=== PATIENT | female | born 1965 | race Caucasian/White ===

== ENCOUNTER → 2016-12-20 | Outpatient (CLI) | payer BC ==
[~2016-12-20] MED LIST: ESCI1TAB10 PO; FERR1TAB13 PO; INSDGI SC; LOSA1TAB PO; METF-384 PO; NAPR1TAB9 PO; NOVOLOG SC; OXYC-57 PO; PREG100C PO; VNTHFA/IN INH
== END | disposition home or self-care (01) ==
LOC: C.PATH 14:42
PROVIDERS: ATTEND Obstetrics & Gynecology
DX: N92.0 Excessive and frequent menstruation with regular cycle (principal)

== ENCOUNTER → 2016-12-20 | Outpatient (CLI) | payer BC ==
[2016-12-20 12:19] LABS: MEAN CELL VOLUME 90.6 fL (80-100); MEAN CORPUSCULAR HEMOGLOBIN 29.9 pg (25-34); MEAN PLATELET VOLUME 9.5 fL (7.4-10.4); PLATELET COUNT 310 K/uL (130-400); RED BLOOD COUNT 3.31 M/uL (4.2-5.4); WHITE BLOOD COUNT 8.04 K/uL (4.8-10.8)
== END | disposition home or self-care (01) ==
LOC: C.LAB1850 09:48
PROVIDERS: ATTEND Physician Assistant
DX: N92.0 Excessive and frequent menstruation with regular cycle (principal)

== ENCOUNTER → 2017-01-15 | Outpatient (CLI) | payer BC | END | disposition home or self-care (01) | LOC: C.PATHSPEC 13:54 | PROVIDERS: ATTEND Obstetrics & Gynecology | DX: N93.9 Abnormal uterine and vaginal bleeding, unspecified (principal) ==

== ENCOUNTER → 2017-01-31 | Outpatient (CLI) | payer BC | END | disposition home or self-care (01) | LOC: C.PAPS 16:22 | PROVIDERS: ATTEND Obstetrics & Gynecology | DX: Z01.419 Encounter for gynecological examination (general) (routine) without abnormal findings (principal) ==

== ENCOUNTER 2017-02-26 07:41 | Observation (INO) | payer BC ==
[2017-01-31 10:58] VITALS: BMI 38.0
--- NOTE | 2017-01-31 11:33 | PAT Medication Instructions ---
Service Date January 31, 2017. Current Home Medication List Albuterol Hfa (Ventolin Hfa), 2-4 PUFFS INH Q6H PRN for PRN Escitalopram Oxalate (Lexapro), 20 MG PO HS Ferrous Sulfate (Kp Ferrous Sulfate), 1 TAB PO QAM Insulin Glargine (Lantus), 23 SC HS Losartan Potassium (Cozaar), 25 MG PO QAM Metformin Hcl (Glucophage), 1,000 MG PO QAM Naproxen (Aleve), 220 MG PO QAM Pregabalin (Lyrica), 100 MG PO BID [Novolog], 14 UNITS SC QAM [Novolog], 8 UNITS SC NOON [Novolog], 28 UNITS SC QPM Medication Instructions For Your Scheduled Surgery - Check with surgeon for instructions: Naproxen (Aleve), 220 MG PO QAM - Hold the following medications 48 hours prior to surgery: Metformin Hcl (Glucophage), 1,000 MG PO QAM - Hold the following medications the morning of surgery: Losartan Potassium (Cozaar), 25 MG PO QAM Ferrous Sulfate (Kp Ferrous Sulfate), 1 TAB PO QAM [Novolog], 14 UNITS SC QAM - Take the following medications the morning of surgery with a sip of water: Pregabalin (Lyrica), 100 MG PO BID Albuterol Hfa (Ventolin Hfa), 2-4 PUFFS INH Q6H PRN for PRN (use if needed; bring to hospital) - Take the following medications as scheduled the night before surgery: Pregabalin (Lyrica), 100 MG PO BID Insulin Glargine (Lantus), 23 SC HS Escitalopram Oxalate (Lexapro), 20 MG PO HS Albuterol Hfa (Ventolin Hfa), 2-4 PUFFS INH Q6H PRN for PRN [Novolog], 28 UNITS SC QPM [Novolog], 8 UNITS SC NOON If you have any questions please call us at [phone] or [phone] or [phone]
[2017-01-31 11:48] LABS: BASO % 0.4 %; BASO ABS # 0.03 K/uL (0-0.2); COMPLETE YES; EOS % 1.9 %; HEMATOCRIT 39.2 % (37-47); IG% 0.3 %; LYMPH % 28.7 %; LYMPH ABS # 2.24 K/uL (1.2-3.4); MEAN CELL VOLUME 90.5 fL (80-100); MEAN CORPUSCULAR HEMOGLOBIN 28.2 pg (25-34); MEAN CORPUSCULAR HGB CONC 31.1 g/dl (32-36); MEAN PLATELET VOLUME 9.5 fL (7.4-10.4); MONO % 6.3 %; NEUT % 62.4 %; PLATELET COUNT 289 K/uL (130-400); RED BLOOD COUNT 4.33 M/uL (4.2-5.4)
[2017-01-31 12:55] LABS: BUN/CREATININE RATIO 22.1 (10-20); CALCIUM 8.8 mg/dl (8.5-10.1); CREATININE 0.74 mg/dl (0.60-1.20); POTASSIUM 4.1 mmol/L (3.5-5.1)
[~2017-02-26] VITALS: Ht 162.6 cm; Wt 99.8 kg
[2017-02-26] VITALS (8 sets, daily range): BP systolic 124–159; BP diastolic 72–93; PULSE 57–76; TEMP 36.4–36.9; O2SAT 94–100; BMI 38.0
[~2017-02-26 07:41] MED LIST changes: +CEFAZOLIN 3000 MG/65 ML D5W IV SCH; +LACTATED RINGER'S 1000ML 1,000 ML IV SCH; -OXYC-57 PO
[2017-02-26] MEDS ORDERED: DEXAMETHASONE SOD INJ 4 MG/ML VIAL ONE (08:34)
[2017-02-26] MEDS ORDERED: ROCURONIUM BROMIDE 10 MG/ML 5 ML VIAL ONE (08:34)
[2017-02-26] MEDS ORDERED: NEOSTIGMINE METHYLSULFATE 5 MG/5 ML SYR ONE (08:34)
[2017-02-26] MEDS ORDERED: FENTANYL CITRATE INJ 50 MCG/1 ML 2 ML VIAL ONE (08:34)
[2017-02-26] MEDS ORDERED: GLYCOPYRROLATE INJ 0.2 MG/ML VIAL ONE (08:34)
[2017-02-26] MEDS ORDERED: PROPOFOL IV EMULSION 10 MG/ML 20 ML VIAL IV ONE (08:34)
[2017-02-26] MEDS ORDERED: ONDANSETRON INJ 2 MG/ML 2 ML VIAL ONE ×2 (08:34→11:48)
[2017-02-26] MEDS ORDERED: MIDAZOLAM HCL 1 MG/ML 2ML VIAL ONE (08:34)
[2017-02-26] MEDS ORDERED: LIDOCAINE HCL 2% 2 ML VIAL (20MG/ML) ONE (08:34)
--- NOTE | 2017-02-26 09:03 | History & Physical Bridge Note ---
H&P Re-Evaluation Bridge Note: I have examined the patient, reviewed the History & Physical and in the interval since the performance of the History & Physical I have noted the following changes of clinical significance: Patient underwent cardiology clearance. Had ekg, echo and stress echo. Was cleared by cards for this surgery. No other changes. No bleeding since seen.
[2017-02-26] MEDS ORDERED: LACTATED RINGER'S 1000ML 1,000 ML IV PRN (09:18)
[2017-02-26] MEDS ORDERED: HYDROmorphone INJ 1 MG/ML SYR IV PRN (09:30)
[2017-02-26] MEDS ORDERED: FENTANYL CITRATE INJ 50 MCG/1 ML 2 ML VIAL IV PRN (09:30)
[2017-02-26] MEDS ORDERED: ONDANSETRON INJ 2 MG/ML 2 ML VIAL IV PRN ×2 (09:30→18:30)
[2017-02-26] MEDS ORDERED: BUPIVACAINE 0.5 % 5 MG/1 ML MPF 30ML VIAL ONE (09:38)
[2017-02-26] MEDS ORDERED: METHYLENE BLUE 0.5% 10 ML VIAL ONE (09:38)
[2017-02-26] MEDS ORDERED: HYDROmorphone INJ 2 MG/ML SYR/VIAL ONE (10:26)
[2017-02-26] MEDS ORDERED: TISSEEL FIBRIN SEALANT 4ML TOP ONE ×2 (11:21→11:58)
[2017-02-26] MEDS ORDERED: OXYC-57 PO (12:08)
--- NOTE | 2017-02-26 12:09 | Discharge Instructions ---
Discharge Instructions Date of Service Feb 26, 2017. Admission Reason for Admission: Menorrhagia Discharge Discharge Diagnosis / Problem: s/p laproscopic hyster and removal of both tubes Discharge Goals Goal(s): Routine recovery after surgery Activity Recommendations Activity Limitations: per Instructions/Follow-up section . Instructions / Follow-Up Instructions / Follow-Up POST OPERATIVE: BOWEL FUNCTION/MEDICATIONS: 1. Constipation pain and discomfort are the most common complaints 5-7 days after surgery. Points 2-6 address the things that can help. 2. Chewing gum can help stimulate the gut and help improve digestion and motility. 3. Milk of Magnesia 1-2 times per day until return of bowel function. 4. Colace is a stool softener that helps. Taking this 2-3 times per day until bowel function returns to normal is highly recommended. 5. Dulcolax is a laxative that may be used if several days have passed without a bowel movement. Alternatively Miralax may be used daily instead. 6. Drink plenty of fluids as this will also reduce constipation. 7. Narcotic pain medications will be prescribed by your physician. They are safe to use and we encourage you to use them. If you are not allergic, ibuprofen will also be prescribed. Many patients will be able to transition off of the narcotic medications to ibuprofen by postoperative day 3. ACTIVITY RECOMMENDATIONS: 1. Get plenty of rest and listen to your body. If you are tired, take a nap. 2. You may shower, but do not take a tub bath until you see your doctor at the 2 week post operative visit. 3. Absolutely NO intercourse and nothing in the vagina until you are examined by your doctor at the 6 week visit. At that visit it will be determined when such activities can be resumed. This can range from 6-12 weeks after your surgery depending on healing time. 4. The main physical activity in the first week should be walking. By the second week you can slowly increase activity. There are no limits on walking up and down stairs. 5. Do not lift more than 5-10 lbs for 4 weeks. Remember the "one-handed rule", i.e. if you can lift something with only one hand it's likely okay. 6. Minimize pin chaser like vacuuming and exercising for 4 weeks. "Overdoing it" can lead to incisions not healing, pain and vaginal bleeding , so again, listen to your body. 7. Driving can be resumed when you feel able. Do not drive within 24 hours of taking a narcotic medication. EXPECTATIONS: 1. Vaginal spotting, bleeding and discharge are common after surgery. There may even be an odor to the discharge which is often related to sutures used in the vagina. If you experience heavy vaginal bleeding, call the office number day or night [phone]. 2. Bladder discomfort is common after surgery from the catheter. This usually resolves in 1-2 weeks. 3. By the end of the 3rd or 4th week you should be feeling much better. It may take up to 6 weeks for your energy levels to return to normal. 4. Narcotic medications have side effects such as: dizziness, headache, nausea and/or vomiting. If you suspect your pain medication is causing problems, call our office and we may be able to prescribe an alternate medication. 5. The skin incisions are often covered with a liquid bandage. This will gradually peel off over time. CALL THE OFFICE IF YOU HAVE ANY OF THE FOLLOWIN. Temperature of 101 degrees or higher. 2. Severe abdominal or pelvic pain not relieved by pain medication. 3. Persistent nausea or vomiting. 4. Increased pain with urination or difficulty urinating. 5. Bright red bleeding that soaks more than 1 pad per hour. CONTACT PHONE NUMBERS: Main Office: [phone] Surgical Nurse: [phone] extension [phone] FOLLOW-UP: Post-Operative Appointments: * Individual instructions will have been given about the timing of your first examination, but this is usually at the end of the second week home. * You will need to call the office at soon after discharge to make the appointment for your post-op check-up if it has not already been scheduled. * Additional information regarding activity, sexual intercourse and when to return to work will be given at this appointment. WE WISH YOU A SPEEDY RECOVERY! Current Hospital Diet Patient's current hospital diet: Discharge Diet Recommended Diet: Diabetes Type 2 Diet Procedures Procedures Performed: Total Laparoscopic Hysterectomy Bilateral Salpingectomy Robot Assist; Cystoscopy Pending Studies Studies pending at discharge: no Medical Emergencies . Who to Call and When: Medical Emergencies: If at any time you feel your situation is an emergency, please call 911 immediately. . Non-Emergent Contact Non-Emergency issues call your: Negative Developer . . "Provider Documentation" section prepared by Melva Lamar. . VTE Core Measure Inpt VTE Proph given/why not?: Treatment not indicated [place] Drug Monitoring Program Search Results: patient reviewed within database, no issues identified
--- NOTE | 2017-02-26 12:10 | [facility] Post Operative Brief Note ---
Immediate Operative Summary Operative Date Feb 26, 2017. Pre-Operative Diagnosis Menorrhagia Post-Operative Diagnosis Same as preop Procedure(s) Performed Total Laparoscopic Hysterectomy Bilateral Salpingectomy Robot Assist; Cystoscopy Surgeon Dr. Lamar Roller Mill Tender Surgeon(s) Dr. Heath Estimated Blood Loss 100 ML Findings top size normal uterus, no tubes and ovaries. Specimens A. Cervix, Uterus, Bilateral Fallopian Tubes Drains ariza Anesthesia gett Complication(s) None Disposition Recovery Room / PACU
[2017-02-26] MEDS ORDERED: SIMETHICONE 80 MG CHEW PO PRN (12:15)
[2017-02-26] MEDS ORDERED: KETOROLAC TROMETHAMINE 30 MG/ML VIAL IV. PRN (12:15)
[2017-02-26] MEDS ORDERED: ACETAMINOPHEN 325 MG TAB PO PRN (12:15)
[2017-02-26] MEDS ORDERED: IBUPROFEN 600 MG TAB PO PRN (12:15)
[2017-02-26] MEDS ORDERED: MEPERIDINE HCL 50 MG/ML CARP IV PRN ×2 (12:15)
[2017-02-26] MEDS ORDERED: OXYCODONE/ACETAMINOPHEN 5-325 TAB PO PRN ×2 (12:15)
--- NOTE | 2017-02-26 12:55 | Anesthesiology Progress Note ---
Anesthesia Post Op Note Date & Time Feb 26, 2017 at 12:55 Vital Signs Pain Intensity: 0 Vital Signs Past 12 Hours Date Time Temp Pulse Resp B/P (MAP) Pulse Ox O2 Delivery O2 Flow Rate FiO2 02/26/17 12:47 81 13 02/26/17 12:47 81 13 96 02/26/17 12:46 147/82 02/26/17 12:42 71 10 02/26/17 12:42 36.9 81 16 147/82 (106) 96 Nasal Cannula 2 02/26/17 12:42 71 10 149/69 98 02/26/17 12:37 66 10 02/26/17 12:37 66 10 97 02/26/17 12:36 135/67 02/26/17 12:32 70 12 98 02/26/17 12:32 70 12 02/26/17 12:31 147/69 02/26/17 12:27 67 16 96 02/26/17 12:27 67 16 02/26/17 12:26 147/70 02/26/17 12:22 68 13 02/26/17 12:22 68 13 153/70 95 02/26/17 12:17 76 13 02/26/17 12:17 77 13 97 02/26/17 12:16 179/83 02/26/17 12:12 70 12 02/26/17 12:12 71 12 94 02/26/17 12:11 158/74 02/26/17 12:09 168/81 02/26/17 12:07 36.8 78 12 168/81 95 Mask 10 02/26/17 08:15 36.7 59 20 146/72 (96) 99 Room Air Notes Mental Status: alert / awake / arousable, participated in evaluation Pt Amnestic to Procedure: Yes Nausea / Vomiting: adequately controlled Pain: adequately controlled Airway Patency, RR, SpO2: stable & adequate BP & HR: stable & adequate Hydration State: stable & adequate Anesthetic Complications: no major complications apparent Pt doing well.
[2017-02-26] MEDS ORDERED: GLUCAGON FOR INJ 1 MG VIAL SQ PRN (16:45)
[2017-02-26] MEDS ORDERED: DEXTROSE 50% 50 ML SYR IV PRN (16:45)
[2017-02-26] MEDS ORDERED: GLUCOSE 40% GEL 15 GM TUBE PO PRN (16:45)
[2017-02-26] MEDS ORDERED: GLUCOSE 10 TABS/TUBE PO PRN (16:45)
[2017-02-26] MEDS ORDERED: ALBUTEROL HFA 8 GM INHALER INH PRN (17:00)
[2017-02-26] MEDS ORDERED: PHARMACY GLYCEMIC MGMT CONSULT PRN (17:01)
--- NOTE | 2017-02-26 17:28 | Pharmacy Progress Note ---
Glycemic: Assessment & Plan Date of Service Feb 26, 2017. Assessment & Plan Item Value Date Time Bedside Glucose 258 mg/dl H 02/26/17 1639 Bedside Glucose 261 mg/dl H 02/26/17 1327 Bedside Glucose 219 mg/dl H 02/26/17 1210 Bedside Glucose 210 mg/dl H 02/26/17 0802 Home Med List: * Lantus 25 units sub-q qPM, last dose (02/25-pm) * Novolog with breakfast/lunch/dinner (14 units - 11 units - 28 units)--last dose with dinner 02/25/17 * Metformin 1 gram po daily, last dose Sun, A/P: pt hyperglycemic. Will increase in-pt basal insulin with Lantus (as metformin on hold) and order Novolog ACHS & 0200 per CF/CR. In-patient Regimen: * Basal insulin: Increase Lantus to 30units every HS, give 1/2 dose for BSG < 100mg/dL. * Correctional Insulin: Novolog Correction per scale ACHS & 0200 Goal Range: Low 120 mg/dL - High 160 mg/dL Correction Factor: 20 mg/dL/unit * Prandial insulin: Per carb ratio of 1 unit per 7 grams CHO consumed Pharmacy will continue to monitor patient daily and write orders per [facility] inpatient glycemic control protocol. Thanks. * Please note that the plan above was derived based on current level of insulin resistance and hospital stress. These recommendations are appropriate for inpatient admission only. Plan of care upon discharge will need to be reassessed to avoid potential outpatient hypo/hyperglycemia.
--- NOTE | 2017-02-26 18:00 | OPERATIVE REPORT ---
DATE OF OPERATION: 02/26/2017 PREOPERATIVE DIAGNOSIS: Menorrhagia with suspected adenomyosis. POSTOPERATIVE DIAGNOSIS: Same. PROCEDURES: 1. Total laparoscopic hysterectomy and bilateral salpingectomy with da Lori assist. 2. Cystoscopy. SURGEON: Melva Lamar MD BRAND MARKETING SPECIALIST: Mayra Heath MD ANESTHESIA: General per endotracheal tube. ESTIMATED BLOOD LOSS: 100 mL. FLUIDS: 1000 mL. URINE OUTPUT: 200 mL of clear yellow urine drained from the bladder prior to cystoscopy. INDICATIONS: Lacy is a 51-year-old 7, para 5, who has had menorrhagia and dysfunctional uterine bleeding, has an ultrasound most consistent with adenomyosis. She has tried medical therapy, but is now ready for hysterectomy. FINDINGS: Uterus top normal size, bulky appearing. Normal tubes and ovaries bilaterally. Appendix not visualized. Liver edge normal. COMPLICATIONS: None. DRAINS: Fisher. DISPOSITION: To recovery room in stable condition. DESCRIPTION OF PROCEDURE: The patient was brought to the operating room, where she was identified verbally and by bracelet. She was transferred to the operating table and placed in dorsal supine position, where general anesthesia was induced without difficulty. She was then placed in dorsal lithotomy position [facility]. Her arms were carefully padded and tucked at her sides. Her chest was padded and restrained. The cylinder head assembler was placed. The patient was prepped and draped in normal sterile fashion. Timeout was held identifying correct patient, procedure and positioning. Attention was then turned to the perineum, where a weighted speculum was placed in the posterior vagina. A Fisher catheter was placed into the bladder. The anterior lip of the cervix was grasped with a single tooth tenaculum. Uterus sounded to 9 cm. A suture of 0 Vicryl was placed at 9 o'clock and the VCare was placed through the cervix. The cup was placed against the cervix and tied to the cervix. The speculum was removed and gloves were then changed. Attention was then turned to the abdomen, where a supraumbilical incision approximately 2 fingerbreadths above the umbilicus was made with a knife. The Veress needle was placed through this with opening pressure of 3 mmHg. Abdomen was insufflated with 3-1/2 liters of carbon dioxide gas. An 11-mm optical trocar was placed through this under direct visualization. Intraabdominal placement was confirmed directly. Then, two 8-mm da Lori trocars were placed under direct visualization in the right and left lower quadrant and an accessory 10-mm trocar in the left upper quadrant, all under direct visualization. The patient was then placed in steep Trendelenburg and evaluation of the pelvis was as noted above. The da Lori assistant producer device was brought to the patient and docked and the beater machine operator proceeded to the console. Then first on the left and then on the right, the tubes were taken down to be removed with the surgical specimen. The tubo-ovarian ligaments were then cauterized and cut. The round ligament was cauterized and cut and entered. The bladder flap was created anteriorly sharply with scissors and pushed down. Then, the uterine arteries on that side were cauterized and cut. This was preceded similarly on the right side. The bladder flap was created all the way around and the uterine arteries were cauterized and cut. Once the bladder was found to be well removed from the cervix, a colpotomy incision was made in 365 degrees. There was considerable bleeding from the accessory vessels to the posterior part of the vaginal cuff that required significant cauterization. The specimen was then removed from the vagina. The cuff was then closed with a 2-0 V-Loc suture. The glove was removed. No gas could be heard escaping from the vagina and hemostasis was noted to be pretty good at that time. Attention was then turned to cystoscopy. The bladder was visualized with a 70 degree cystoscope. There were no stitches within the bladder. Both ureteral orifices were identified and found to be effluxing blue tinged urine bilaterally indicating ureteral patency. There was a little bit of trauma at the urethral orifice from the cystoscope. This was minimal. Her previous Fisher catheter had been removed and the cystoscope was removed and a new Fisher catheter was placed. Attention was then returned to the robot, where Tisseel was placed over the operative sites to assist in assuring hemostasis. The robotic part of the procedure was then completed. The robot was disengaged from the patient. The gas was released from the abdomen. Trocars were removed. A deep [id number] stitch was placed at the supraumbilical site in the fascia and then all incisions were closed with 4-0 Vicryl in a subcuticular fashion. The incisions were infiltrated with 0.5% Marcaine. The procedure was thus terminated. All sponge, lap and needle counts were correct x2. The patient tolerated the procedure well and was taken to recovery room in stable condition. I attest to the content of the Intraoperative Record and any orders documented therein. Any exceptions are noted below. MTDD
[2017-02-26] MEDS: LACTATED RINGER'S 1000ML 1,000 ML IV SCH (18:26)
[2017-02-26] MEDS: INSULIN ASPART 100 UNITS/ML 3 ML PEN SC SCH ×2 (18:26→21:10)
[2017-02-26] MEDS ORDERED: INSULIN GLARGINE SOLOSTAR 100 UNITS/ML 3 ML PEN SC SCH (20:00)
[2017-02-26 20:01] LABS: HEMATOCRIT 39.4 % (37-47)
--- NOTE | 2017-02-26 20:32 | INTERNAL MEDICINE CONSULTATION ---
DATE OF CONSULTATION: 02/26/2017 REASON FOR CONSULTATION: Medical co care. HISTORY OF PRESENT ILLNESS: The patient is a 51-year-old female with past medical history of diabetes mellitus insulin requiring, hypertension, depression and chronic anemia secondary to metrorrhagia, came to the hospital for an elective total laparoscopic hysterectomy with bilateral salpingectomy, Robot-assist cystoscopy by Dr. Melva Lamar. The procedure went uneventful and we were consulted to manage her diabetes and medical problems. PAST MEDICAL HISTORY: As mentioned in HPI. SOCIAL HISTORY: Does not smoke or drink. FAMILY HISTORY: Positive for diabetes and hypertension. REVIEW OF SYSTEMS: Denies any headache, double vision, blurry vision. Denies any chest pain or palpitation. Denies any cough, wheezing, shortness of breath. Denies any diarrhea, blood in the stool. Denies any burning sensation in the urine or blood. Denies any focal weakness, tingling, numbness. Rest of the review of systems is negative. HOME MEDICATIONS: 1. Ventolin HFA. 2. Lexapro 20 mg p.o. daily. 3. Insulin Lantus 25 units at bedtime. 4. Losartan 25 mg q.a.m. 5. Metformin 1000 p.o. q.a.m. 6. Percocet p.r.n. pain. 7. Lyrica 100 mg p.o. b.i.d. ALLERGIES: TO LISINOPRIL. PHYSICAL EXAMINATION: VITAL SIGNS: Temperature 36.7, heart rate is 73. Blood pressure 157/81, saturation 97% on room air. HEENT: No jaundice, no pallor. Wet mucous membranes. NECK: Supple. HEART: S1, S2 normal. No gallop, rub or murmur. LUNGS: Clear to auscultation bilaterally. Normal chest wall expansion. ABDOMEN: Soft, slightly tender, but not distended, no rebound. NEUROLOGIC: Awake, alert, oriented to time, place, and person. Moves all extremities. Sensation intact. Cranial nerves II-XII appear to be intact. SKIN: No rash or erythema. LABORATORY DATA: White blood cell count 7.8, hemoglobin 12.2, platelet count is 289, BUN is 16, creatinine 0.7. Sodium 141, potassium is 4.1. ASSESSMENT: 1. Chronic blood loss anemia secondary to metrorrhagia. 2. Metrorrhagia status post total laparoscopic hysterectomy. 3. Diabetes mellitus, insulin requiring. 4. Hypertension. 5. Depression. PLAN: 1. Since the patient has a poor oral intake at this moment, we will hold her Lantus and we will hold also metformin due to dehydration and the decreased oral intake, we will put her on sliding scale insulin managed by pharmacy. 2. We will initiate her Lexapro and albuterol inhaler and Lyrica. We will hold her lisinopril again due to decreased oral intake and possibly dehydration. 3. We will add hydralazine p.r.n. systolic blood pressure more than 180. Otherwise, a slight increase in pressure is acceptable. 4. Sliding DVT prophylaxis as per primary team. will continue to follow up the patient and further recommendation will follow. Please call us if anything comes up. Otherwise, we will see the patient again tomorrow. CHITO
[2017-02-26] MEDS: PREGABALIN 100 MG CAP PO SCH (21:11)
[2017-02-26] MEDS ORDERED: ESCITALOPRAM OXALATE 20 MG TAB PO SCH (22:00)
[2017-02-27] MEDS ORDERED: INSULIN ASPART 100 UNITS/ML 3 ML PEN SC SCH (02:00)
[2017-02-27] MEDS: LACTATED RINGER'S 1000ML 1,000 ML IV SCH (02:06)
[2017-02-27] MEDS: IV FLUIDS COMPLETED PRN ×2 (02:11→03:32)
[2017-02-27 03:20] VITALS: BP 114/67; PULSE 68; TEMP 36.7; O2SAT 95
[2017-02-27] MEDS: INSULIN ASPART 100 UNITS/ML 3 ML PEN SC SCH (07:30)
--- NOTE | 2017-02-27 07:31 | OB/GYN Progress Note ---
ABSEILING INSTRUCTOR Progress Note Date of Service Feb 27, 2017. Subjective conversation w/ patient, physical exam, lab review Ambulation: ambulating normally Voiding: no voiding problems Passing Gas: Yes Diet Tolerance: Clear Liquids Notes: Patient was very slow yesterday in recovering from anesthesia. She has ambulated to the BR and has voided well. She notes some pain at her incisions controlled with oral pain meds. Her nausea has passed and she will be having a regular diet this am. Review of Systems Respiratory: + hemoptysis, No shortness of breath, No dyspnea at rest Cardiac: + edema, No chest pain, No palpitations Abdomen: No nausea, No vomiting, No diarrhea, No constipation Objective Vital Signs Date Time Temp Pulse Resp B/P (MAP) Pulse Ox O2 Delivery O2 Flow Rate FiO2 02/27/17 03:20 36.7 68 18 114/67 (83) 95 Room Air 02/26/17 23:20 Room Air 02/26/17 23:20 36.7 57 20 130/80 (97) 96 Room Air 02/26/17 20:00 36.9 63 16 159/89 (112) 94 Room Air 02/26/17 16:15 76 16 149/93 (111) 94 Room Air 02/26/17 15:15 36.4 61 16 142/82 (102) 100 Room Air 02/26/17 15:15 100 Room Air 02/26/17 14:15 60 12 124/82 (96) 98 Room Air 02/26/17 13:45 36.4 61 16 147/85 (105) 98 Nasal Cannula 2.0 02/26/17 13:15 36.7 73 18 157/81 (106) 97 Room Air 02/26/17 13:15 97 Room Air 02/26/17 13:15 97 Room Air 02/26/17 12:58 64 14 02/26/17 12:58 65 14 96 02/26/17 12:56 133/81 02/26/17 12:53 66 10 02/26/17 12:53 67 10 97 02/26/17 12:52 127/75 02/26/17 12:48 79 14 02/26/17 12:48 79 14 96 02/26/17 12:47 81 13 02/26/17 12:47 81 13 96 02/26/17 12:46 147/82 02/26/17 12:42 71 10 02/26/17 12:42 36.9 81 16 147/82 (106) 96 Nasal Cannula 2 02/26/17 12:42 71 10 149/69 98 02/26/17 12:37 66 10 02/26/17 12:37 66 10 97 02/26/17 12:36 135/67 02/26/17 12:32 70 12 98 02/26/17 12:32 70 12 02/26/17 12:31 147/69 02/26/17 12:27 67 16 96 02/26/17 12:27 67 16 02/26/17 12:26 147/70 02/26/17 12:22 68 13 02/26/17 12:22 68 13 153/70 95 02/26/17 12:17 76 13 02/26/17 12:17 77 13 97 02/26/17 12:16 179/83 02/26/17 12:12 70 12 02/26/17 12:12 71 12 94 02/26/17 12:11 158/74 02/26/17 12:09 168/81 02/26/17 12:07 36.8 78 12 168/81 95 Mask 10 02/26/17 08:15 36.7 59 20 146/72 (96) 99 Room Air Physical Exam General Appearance: WELL-APPEARING, WD/WN, NO APPARENT DISTRESS Respiratory/Chest: lungs clear, normal breath sounds Cardiovascular: regular rate, rhythm Abdomen: normal bowel sounds, non tender, soft Incision Description: Clean, Dry & Intact Extremities: non-tender, normal inspection, no pedal edema minimal spotting on her pad Laboratory Results Last 24 Hours Test 02/26/17 07:58 02/26/17 08:02 02/26/17 12:10 02/26/17 13:27 Bedside Urine Test NEG Bedside Glucose 210 mg/dl 219 mg/dl 261 mg/dl Test 02/26/17 16:39 02/26/17 19:52 02/26/17 20:56 02/27/17 02:04 Bedside Glucose 258 mg/dl 242 mg/dl 175 mg/dl Hemoglobin 12.8 g/dL Hematocrit 39.4 % Test 02/27/17 04:44 Assessment and Plan Post-Op Day Number: 1 Continue Routine Care: Doing better this am. Plan d/c after eating. Instructions and precautions given.
--- NOTE | 2017-02-27 07:34 | Anesthesiology Progress Note ---
Anesthesia Post Op Note Date & Time Feb 27, 2017 at 07:33 Vital Signs Vital Signs Past 12 Hours Date Time Temp Pulse Resp B/P (MAP) Pulse Ox O2 Delivery O2 Flow Rate FiO2 02/27/17 03:20 36.7 68 18 114/67 (83) 95 Room Air 02/26/17 23:20 Room Air 02/26/17 23:20 36.7 57 20 130/80 (97) 96 Room Air 02/26/17 20:00 36.9 63 16 159/89 (112) 94 Room Air Notes Mental Status: alert / awake / arousable, participated in evaluation Pt Amnestic to Procedure: Yes Nausea / Vomiting: adequately controlled Pain: adequately controlled Airway Patency, RR, SpO2: stable & adequate BP & HR: stable & adequate Hydration State: stable & adequate Anesthetic Complications: no major complications apparent
[2017-02-27] MEDS: PREGABALIN 100 MG CAP PO SCH (07:40)
[2017-02-27 08:27] LABS: BASO % 0.1 %; BASO ABS # 0.01 K/uL (0-0.2); COMPLETE YES; EOS % 0.2 %; HEMATOCRIT 37.4 % (37-47); IG% 0.2 %; LYMPH % 18.3 %; LYMPH ABS # 2.24 K/uL (1.2-3.4); MEAN CELL VOLUME 89.7 fL (80-100); MEAN CORPUSCULAR HEMOGLOBIN 28.1 pg (25-34); MEAN CORPUSCULAR HGB CONC 31.3 g/dl (32-36); MEAN PLATELET VOLUME 10.2 fL (7.4-10.4); MONO % 7.1 %; NEUT % 74.1 %; PLATELET COUNT 253 K/uL (130-400); RED BLOOD COUNT 4.17 M/uL (4.2-5.4); WHITE BLOOD COUNT 12.23 K/uL (4.8-10.8)
[2017-02-27 08:37] VITALS: BP 133/78; PULSE 60; TEMP 36.7; O2SAT 97
[2017-02-27 09:01] LABS: CREATININE 0.8 mg/dl (0.60-1.20); MAGNESIUM 2.2 mg/dl (1.8-2.4)
[2017-02-27 09:04] LABS: ALB/GLOB RATIO 0.9 (0.9-2); PHOSPHORUS 3.6 mg/dl (2.5-4.9)
[2017-02-27 09:05] LABS: ESTIMATED AVERAGE GLUCOSE 200 mg/dl; HA1C FLAG Normal (Normal)
[2017-02-27 09:15] VITALS: BP 133/78; PULSE 60; TEMP 36.7; O2SAT 97
[2017-02-27 09:30] VITALS: Ht 162.6 cm; Wt 99.8 kg
[2017-02-27 10:02] LABS: CALCIUM 9.1 mg/dl (8.5-10.1)
--- NOTE | 2017-03-02 08:03 | DISCHARGE SUMMARY ---
ADMISSION DIAGNOSES: Menorrhagia. DISCHARGE DIAGNOSES: Same. PROCEDURES: Total laparoscopic hysterectomy with bilateral salpingectomies and cystoscopy. HISTORY: The patient is a 51-year-old 7, para 5 who presented for menometrorrhagia. She had been previously managed medically, but desired surgical management. For the rest of the patient's detailed history and physical, please see her dictated history and physical. ASSESSMENT: This is a 51-year-old 7, para 5 with menometrorrhagia who presents for hysterectomy. HOSPITAL COURSE: The patient was admitted, she underwent a total laparoscopic hysterectomy, bilateral salpingectomies and cystoscopy without complications. ESTIMATED BLOOD LOSS: 100 mL. The patient's postoperative course was slow. She was quite sleepy after anesthesia and had a difficult time waking up. Her postoperative course was also complicated by nausea requiring IV nausea medications. However, she did eventually progress to a regular diet on the breakfast of postoperative day #1. Her Fisher catheter was removed and she voided. She tolerated oral pain medications and she was able to ambulate. She was discharged home the morning of postoperative day #1. She was given Percocet for pain and routine follow up. During the course of her hospitalization she also had a medicine consult for management of her blood sugars.
== END 2017-02-27 09:55 | disposition home or self-care (01) ==
LOC: C.ACU 07:41 → C.OBG 08:05 → UNDOADMOB 08:05 → C.OBG 12:06 → ENRESERV 13:23 → UNDODISOB 02-27 09:55
PROVIDERS: ADMIT Obstetrics & Gynecology; ATTEND Obstetrics & Gynecology
DX: N92.0 Excessive and frequent menstruation with regular cycle (principal); I10 Essential (primary) hypertension; E11.9 Type 2 diabetes mellitus without complications; J45.909 Unspecified asthma, uncomplicated; F32.9 Major depressive disorder, single episode, unspecified; Z79.4 Long term (current) use of insulin; Z87.42 Personal history of other diseases of the female genital tract; Z86.018 Personal history of other benign neoplasm; Z90.89 Acquired absence of other organs; E66.9 Obesity, unspecified; Z68.38 Body mass index [BMI] 38.0-38.9, adult; Z80.0 Family history of malignant neoplasm of digestive organs; Z83.79 Family history of other diseases of the digestive system; Z80.49 Family history of malignant neoplasm of other genital organs; Z80.3 Family history of malignant neoplasm of breast
CPT/HCPCS: 58571; S2900